=== PATIENT | female | born 1975 | race Two or more races ===

== ENCOUNTER 2023-10-21 12:25 | Emergency (ER) | payer MEDICAID ==
[~2023-10-21] VITALS: Ht 170.2 cm; Wt 130.0 kg
[2023-10-21 12:54] LABS: Urine Bacteria FEW /hpf (None Seen); Urine Blood Negative /uL (Negative); Urine Clarity Clear (Clear); Urine Color Colorless (Yellow); Urine Protein, UAD Negative (Negative); Urine Specific Gravity 1.007 (1.001-1.035); Urine Urobilinogen Normal (Negative); Urine WBC 1 /hpf (0 - 5)
[2023-10-21 13:17] VITALS: BP 156/106; PULSE 82; RESP 18; TEMP 97.5; O2SAT 95
[2023-10-21 13:30] LABS: Basophils # (auto) 0 10 ^3/uL (0-0.2); Basophils % (auto) 0.7 % (0.0-2.0); Eosinophils # (auto) 0.1 10 ^3/uL (0-0.8); Eosinophils % (auto) 0.8 % (0.0-7.0); Hematocrit 43.2 % (36.0-46.0); Hemoglobin 14.1 g/dL (12.2-16.2); Lymphocytes # (auto) 1.8 10 ^3/uL (0.4-5.4); Lymphocytes % (auto) 27.5 % (10.0-50.0); Mean Corpuscular Hemoglobin 30.3 pg (28.0-32.0); Mean Corpuscular Hgb Conc. 32.6 g/dL (32.0-36.0); Mean Corpuscular Volume 92.9 fL (80.0-100.0); Monocytes # (auto) 0.3 10 ^3/uL (0-1.3); Monocytes % (auto) 4.1 % (0.0-12.0); Neutrophils # (auto) 4.4 10 ^3/uL (1.6-8.6); Neutrophils % (auto) 66.9 % (37.0-80.0); Red Blood Cells 4.65 10^6/uL (4.0-5.20); Red Cell Distribution Width 14.3 % (11.8-14.3); White Blood Cell 6.6 10^3/uL (4.4-10.8)
[2023-10-21 13:45] LABS: Alanine Aminotransferase 20 U/L (7-40); Albumin 4.5 g/dL (3.2-4.8); Alkaline Phosphatase 119 U/L (46-116); Anion Gap 7 (5-15); Aspartate Aminotransferase 16 U/L (13-40); BUN/Creatinine Ratio 10.1 (10.0-20.0); Bilirubin, Total 0.4 mg/dL (0.2-1.0); Blood Urea Nitrogen 8 mg/dL (9-23); Calcium 9.5 mg/dL (8.7-10.4); Carbon Dioxide 28 mmol/L (20-30); Chloride 103 mmol/L (98-107); Glucose 95 mg/dL (74-106); Lipase 52 U/L (12-53); Potassium 4.1 mmol/L (3.5-5.1); Sodium 138 mmol/L (136-145)
[2023-10-21 13:46] LABS: Total Protein 7.8 g/dL (5.7-8.2)
[2023-10-21] MEDS: KETOROLAC TROMETH 60MG/2ML VIAL IM ONE (14:29)
[2023-10-21] MEDS ORDERED: IBUP-1456 PO (14:37)
== END 2023-10-21 14:38 | disposition home or self-care (01) ==
LOC: ER 12:25
DX: S29.011A Strain of muscle and tendon of front wall of thorax, initial encounter (principal); K76.0 Fatty (change of) liver, not elsewhere classified; Z98.890 Other specified postprocedural states; Z88.8 Allergy status to other drugs, medicaments and biological substances; Z79.899 Other long term (current) drug therapy; X58.XXXA Exposure to other specified factors, initial encounter; Y93.89 Activity, other specified; Y92.89 Other specified places as the place of occurrence of the external cause; Y99.8 Other external cause status
CPT/HCPCS: 36415; 76705; 80053; 81001; 83690; 85025; 96372; 99285; J1885

== ENCOUNTER 2025-06-04 07:50 | Day surgery (SDC) | payer MEDICAID ==
[2025-05-28 12:24] LABS: Hematocrit 40.0 % (36.0-46.0); Hemoglobin 13.7 g/dL (12.2-16.2); Mean Corpuscular Hemoglobin 31.9 pg (28.0-32.0); Mean Corpuscular Volume 92.9 fL (80.0-100.0); Nucleated Red Blood Cells % 0.1 %
[2025-05-28 12:34] LABS: Urine Protein, UAD Negative (Negative)
[2025-05-28 12:40] LABS: INR 0.95 (0.9-1.15); Partial Thromboplastin Time 28.7 SEC (24.5-34.5); Prothrombin Time 10.1 sec (9.3-11.8)
[2025-05-28 12:50] LABS: Alanine Aminotransferase 38 U/L (7-40); Albumin 4.3 g/dL (3.2-4.8); Anion Gap 8 (5-15); BUN/Creatinine Ratio 10.6 (10.0-20.0); Calcium 9.2 mg/dL (8.7-10.4); Carbon Dioxide 31 mmol/L (20-31); Chloride 104 mmol/L (98-107); Glucose 84 mg/dL (74-106); Potassium 4.1 mmol/L (3.5-5.1); Sodium 143 mmol/L (136-145); Total Protein 7.4 g/dL (5.7-8.2)
[2025-05-28 12:51] LABS: Alkaline Phosphatase 146 U/L (46-116); Blood Urea Nitrogen 9 mg/dL (9-23)
[2025-05-28 12:52] LABS: Bilirubin, Total 0.3 mg/dL (0.2-1.0)
[~2025-06-04] VITALS: Ht 170.2 cm; Wt 98.9 kg
[~2025-06-04 07:50] MED LIST: HYDROmorphone HCL 2 MG/ML VL/or syr IV PRN; METOCLOPRAMIDE HCL 5MG/ml INJ 2ml VIAL IV PRN; MORPHINE SULFATE 4 MG/ML SYR/VIAL IV PRN; MORPHINE SULFATE INJ 2 MG/ml SYRG IV PRN; TIRZ15IN2 SC
[2025-06-04] MEDS ORDERED: ceFAZolin 2 GM/D5W50ml 50 ML IV ONE (08:05)
[2025-06-04] MEDS ORDERED: BUPIVACAINE 0.5% P/F INJ 10 ML VIAL ONE (08:17)
[2025-06-04] MEDS ORDERED: LIDOCAINE HCL 2% TOP JELLY 5ML TOP ONE (08:20)
[2025-06-04] MEDS ORDERED: fentaNYL CITRATE 100 MCG/2 ML VL ONE (08:20)
[2025-06-04] MEDS ORDERED: SODIUM CHLORIDE LOCK 10 ML ONE (08:20)
[2025-06-04] MEDS ORDERED: MIDAZOLAM HCL 2MG/2ML 2ml VIAL (1mg/ml) ONE (08:20)
[2025-06-04] MEDS ORDERED: PROPOFOL 10 MG/ML 20 ML IV ONE (08:20)
[2025-06-04] MEDS ORDERED: LIDOCAINE 1% INJ PF 5ML AMP ONE (08:20)
[2025-06-04] MEDS ORDERED: ONDANSETRON HCL 4 MG/2 ML VIAL ONE (08:20)
[2025-06-04 09:41] VITALS: PULSE 70; RESP 13; TEMP 97
[2025-06-04] MEDS: KETOROLAC TROMETH 30 MG/ML 1ML VIAL IV ONE (10:13)
[2025-06-04 10:30] VITALS: BP 157/84; PULSE 62; RESP 13; O2SAT 100
--- NOTE | 2025-06-04 11:31 | DVHOP2 ---
Operative Report - 2 Report Details Date: 06/04/25 Preop Diagnosis: Left wrist distal radius retained symptomatic hardware Postop Diagnosis: Left wrist distal radius retained symptomatic hardware Surgeon: Stan Hobbs MD Anesthesiologist: Dr Valdivia Anesthesia: General Implant: None Consent: The patient was informed of the risks and benefits of the procedure. These include but are not limited to complications of anesthesia, postoperative infection, incomplete relief of symptoms, recurrence of symptoms, damage to blood vessels, nerves and tendons, deep venous thrombosis, pulmonary embolism and possible need for repeat surgery in the future. Complications: None Estimated Blood Loss: Less than 5 mL Indications for Surgery: The patient is a 49-year-old female who presented to the clinic with history operative left wrist pain. Clinical and radiological evaluation demonstrated old healed distal radius fracture with hardware. Distal volar plate was noted. The patient believed that there was some pain associated with that with some popping. Initially she was discouraged from having surgery due to the deep nature of the implant, however after thorough conversation regarding risks and complications, benefits, pros and cons, she decided to proceed with the surgical. Specific complications such as median nerve damage and radial artery damage were discussed with her. Complex regional pain syndrome was also discussed. Name of Procedure Performed Left wrist distal radius hardware removal Procedure Details Procedure Details: The patient was identified in the preoperative holding area and the surgical site was marked. The consent was verified. He was brought into the operating room and placed supine on the operating table. General anesthesia was administered. Intravenous antibiotics were given. The extremity was prepped an d draped in the usual sterile manner. A time-out was called to confirm the identity of the patient, the nature of surgery, the site of surgery, the availability of implants and x-rays and allergies to medications. An incision was made over the same previous scar. The skin and the subcutaneous tissue were carefully dissected. The flexor carpi radialis tendon was retracted. The radial artery was retracted radially. The median nerve was protected medially. The pronator quadratus muscle was identified and released of the distal radius. The distal volar plate was identified. It was covered with some bone. An osteotome was used to remove the bone off the plate and also in the screw heads. A dental pick was used. Carefully the screw heads were cleaned up. A screwdriver was used to remove all the screws uneventfully. The plate was very hard to remove but gradually the bone was removed off it and was broken with an osteotome. The plate was eventually removed. Good bone stock and complete healing was noted. X-rays were obtained to confirm the removal of the hardware. Thorough irrigation was given. A tourniquet was released. No significant bleeding was noted. Hemostasis was achieved for the capillary bleeding. The skin was closed in layers of 2-0 Vicryl and 3-0 Monocryl. Sterile dressing was applied Plan: The patient was extubated and taken to the recovery without any co mplications. She may range her wrist as tolerated. Follow up in two weeks. Condition Good Disposition Home STAN HOBBS MD Jun 04, 2025 11:31
--- NOTE | 2025-06-04 12:02 | DVH ---
C-ARM FLUOROSCOPY: PROCEDURE: Left wrist hardware removal FLUOROSCOPY TIME: 5.5 seconds Air Kerma: 0.09 mgy FINDINGS: Spot intraoperative C arm radiographs demonstrating left wrist hardware removal. IMPRESSION: Please refer to surgical report for detailed findings.
== END 2025-06-04 09:41 | disposition home or self-care (01) ==
LOC: SUR 07:50
PROVIDERS: ATTEND Orthopaedic Surgery Sports Medicine
DX: T84.84XA Pain due to internal orthopedic prosthetic devices, implants and grafts, initial encounter (principal); M25.532 Pain in left wrist; E66.9 Obesity, unspecified; Z68.35 Body mass index [BMI] 35.0-35.9, adult; Z98.890 Other specified postprocedural states; Y83.8 Other surgical procedures as the cause of abnormal reaction of the patient, or of later complication, without mention of misadventure at the time of the procedure
CPT/HCPCS: 20680; 36415; 73100; 80053; 81003; 81025; 85025; 85610; 85730; J0690; J1885; J2250; J2405; J2704; J3010; J3490; 76000